=== PATIENT | male | born 1970 | race Hispanic/Latino ===

== ENCOUNTER 2017-03-06 13:05 | Emergency (ER) | payer OTHER ==
[2017-03-06 13:56] LABS: Hematocrit 40.3 % (35.5-45.6); Hemoglobin 13.5 gm/dl (11.8-15.2); Mean Corpuscular HGB Conc 34 % (32-34); Mean Corpuscular Hemoglobin 30 pg (28-32); Mean Corpuscular Volume 90 fl (84-94); Platelet Count 313 K/mm3 (140-440); Red Blood Count 4.45 M/mm3 (3.65-5.03); Red Cell Distribution Width 14.1 % (13.2-15.2); White Blood Count 12.9 K/mm3 (4.5-11.0)
[2017-03-06 14:17] LABS: Anion Gap 20 mmol/L; BUN/Creatinine Ratio 15; Blood Urea Nitrogen 9 mg/dL (9-20); Calcium 8.6 mg/dL (8.4-10.2); Carbon Dioxide 23 mmol/L (22-30); Chloride 94.6 mmol/L (98-107); Glucose 130 mg/dL (75-100); Sodium 134 mmol/L (137-145)
--- NOTE | 2017-03-06 15:34 | Emergency Department Report ---
ED Extremity Problem HPI - General Chief complaint: Extremity Injury, Lower Stated complaint: LEFT KNEE SWOLLEN Time Seen by Provider: 03/06/17 15:33 Source: patient Mode of arrival: Ambulatory Limitations: No Limitations - Related Data Previous Rx's Medication Instructions Recorded Last Taken Type ALPRAZolam [Xanax TAB] 0.25 mg PO Q8H PRN #20 tablet 12/02/13 Unknown Rx Omeprazole Magnesium [Prilosec Otc] 20 mg PO QDAY #30 tablet. 12/02/13 Unknown Rx Allergies Allergy/AdvReac Type Severity Reaction Status Date / Time codeine AdvReac Nausea Verified 12/16/13 10:59 Penicillins AdvReac Unknown Verified 12/16/13 10:59 ED Review of Systems ROS: Stated complaint: LEFT KNEE SWOLLEN Other details as noted in HPI ED Past Medical Hx - Past Medical History Previous Medical History?: Yes Hx Congestive Heart Failure: No Hx Diabetes: No Hx Asthma: No Hx COPD: No Hx HIV: No Additional medical history: BACK PAIN. bicuspid valve - Surgical History Additional Surgical History: Wrist fusion- left. Knee Surgery- left ACL repair - Social History Smoking Status: Current Every Day Smoker Substance Use Type: None - Medications Home Medications: Home Medications Medication Instructions Recorded Confirmed Last Taken Type ALPRAZolam [Xanax TAB] 0.25 mg PO Q8H PRN #20 tablet 12/02/13 Unknown Rx Omeprazole Magnesium [Prilosec Otc] 20 mg PO QDAY #30 tablet. 12/02/13 Unknown Rx ED Physical Exam - General Limitations: No Limitations ED Course Vital Signs 03/06/17 13:12 Temperature 98.9 F Pulse Rate 101 H Respiratory 18 Rate Blood Pressure 125/72 O2 Sat by Pulse 96 Oximetry ED Medical Decision Making - Lab Data Result diagrams: 03/06/17 13:38 03/06/17 13:38 Critical care attestation.: If time is entered above; I have spent that time in minutes in the direct care of this critically ill patient, excluding procedure time. ED Disposition Condition: Stable Referrals: PRIMARY CARE, [Primary Care Provider] - 3-5 Days
--- NOTE | 2017-03-06 16:07 | Emergency Department Report ---
Chief Complaint: Extremity Injury, Lower Stated Complaint: LEFT KNEE SWOLLEN Time Seen by Provider: 03/06/17 15:33 - HPI History of Present Illness: Patient here presented with left knee pain, swelling and limited range of motion. Patient said he had knee surgery when he was 14 years old. He said prior to this he was walking and had no problem. Denies history of gout. - ROS Review of Systems: All systems are negative unless stated in HPI above. - Exam Vital Signs: Vital Signs 03/06/17 13:12 Temperature 98.9 F Pulse Rate 101 H Respiratory 18 Rate Blood Pressure 125/72 O2 Sat by Pulse 96 Oximetry Physical Exam: General: This is a 47-year-old male well-nourished well-developed in no acute distress. Extremity: No clubbing, cyanosis or edema. +2 pedal pulses except the left knee with effusion, erythema and tender to palpate with limited range of motion upon flexion and extension. Patient is not able to fully flex and extend his knee. MSE screening note: Focused history and physical exam performed. Due to findings the following was ordered: ED Medical Decision Making - Lab Data Result diagrams: 03/06/17 13:38 03/06/17 13:38 Lab Results 03/06/17 03/06/17 Range/Units 13:38 13:38 WBC 12.9 H (4.5-11.0) K/mm3 RBC 4.45 (3.65-5.03) M/mm3 Hgb 13.5 (11.8-15.2) gm/dl Hct 40.3 (35.5-45.6) % MCV 90 (84-94) fl MCH 30 (28-32) pg MCHC 34 (32-34) % RDW 14.1 (13.2-15.2) % Plt Count 313 (140-440) K/mm3 Sodium 134 L (137-145) mmol/L Potassium 4.0 (3.6-5.0) mmol/L Chloride 94.6 L (98-107) mmol/L Carbon Dioxide 23 (22-30) mmol/L Anion Gap 20 mmol/L BUN 9 (9-20) mg/dL Creatinine 0.6 L (0.8-1.5) mg/dL Estimated GFR > 60 ml/min BUN/Creatinine Ratio 15 % Glucose 130 H (75-100) mg/dL Calcium 8.6 (8.4-10.2) mg/dL - Medical Decision Making MDM:Patient screen by medical provider, appropriate labs and diagnostic tests ordered. Patient to receive IV fluid with medication and antinausea medication. ED attending physician seeing patient ED Disposition for MSE Condition: Stable Referrals: PRIMARY CARE, [Primary Care Provider] - 3-5 Days
--- NOTE | 2017-03-06 16:26 | XRay Report ---
XRAY LEFT KNEE 3 VIEWS: 03/06/17 13:05:00 CLINICAL: Knee swelling. FINDINGS: No fracture or dislocation. Mild medial joint space narrowing. Calcification of the lateral meniscus. A tunnel in the tibia is consistent with an old ACL graft repair. There is a small proximal fixation screw but no distal fixation screw. Patellofemoral joint osteoarthritis. Small knee joint effusion and anterior thigh soft tissue swelling. IMPRESSION: Small knee joint effusion and patellofemoral joint osteoarthritis. Lateral meniscal chondrocalcinosis. Mild medial joint osteoarthritis.Suspect a failed ACL graft repair.
[2017-03-06 16:36] LABS: Bilirubin,Urine NEG (Negative); Blood,Urine MOD (Negative); Ketones,Urine NEG (Negative); Leukocyte Esterase,Urine NEG (Negative); Mucus,Urine FEW /HPF; Nitrite,Urine NEG (Negative); Protein,Urine <15 mg/dL mg/dL (Negative); Urobilinogen,Urine < 2.0 mg/dL (<2.0)
[2017-03-06] MEDS ORDERED: MORPHINE IV ONE (16:40)
[2017-03-06] MEDS ORDERED: NACL 0.9% 1000 ML 1,000 ML IV ONE (16:40)
[2017-03-06] MEDS ORDERED: ZOFRAN IV ONE (16:40)
[2017-03-06 16:58] LABS: Alanine Aminotransferase 15 units/L (7-56); Albumin 3.8 g/dL (3.9-5); Albumin/Globulin Ratio 1.1 %; Alkaline Phosphatase 51 units/L (35-129); Total Protein 7.4 g/dL (6.3-8.2)
[2017-03-06 17:01] LABS: Basophils % (Manual) 0 % (0.0-1.8); Blastocytes % (Manual) 0 %; Eosinophils % (Manual) 0 % (0.0-4.3)
[2017-03-06 17:02] LABS: Anisocytosis 2+; Elliptocytes Rare; Poikilocytosis Few; Tear Drop Cells Rare
[2017-03-06 17:05] LABS: Bilirubin,Direct < 0.2 mg/dL (0-0.2); Bilirubin,Indirect 0.3 mg/dL
--- NOTE | 2017-03-06 18:02 | Emergency Department Report ---
HPI - General Chief Complaint: Extremity Injury, Lower Time Seen by Provider: 03/06/17 15:33 - HPI HPI: This is a 47-year-old male presents to the emergency department from home with complaint of a 24-hour history of left knee pain. Patient says he woke up yesterday without any trauma and the left knee was slightly swollen and very stiff. He said it felt like it needed to pop. Shortly after that the pain increased and he felt like he is unable to bear weight on that left leg because of knee pain. He has a history of a left knee anterior cruciate ligament tear and repair with a graft when he was 14 years old. He has tried some [id number] pain medications that her relief. No recent travel or sick contacts at home. He does not currently have a primary care physician or an orthopedist. As a secondary complaint, the patient has some type of skin lesion or wound or ulcer to his upper right back. He says it has been there for "some time." He has not seen a fire marshal. He says that this lesion is not painful or bleeding or draining anything. ED Past Medical Hx - Past Medical History Previous Medical History?: Yes Hx Congestive Heart Failure: No Hx Diabetes: No Hx Asthma: No Hx COPD: No Hx HIV: No Additional medical history: BACK PAIN. bicuspid valve - Surgical History Additional Surgical History: Wrist fusion- left. Knee Surgery- left ACL repair - Social History Smoking Status: Current Every Day Smoker Substance Use Type: None - Medications Home Medications: Home Medications Medication Instructions Recorded Confirmed Last Taken Type ALPRAZolam [Xanax TAB] 0.25 mg PO Q8H PRN #20 tablet 12/02/13 Unknown Rx Omeprazole Magnesium [Prilosec Otc] 20 mg PO QDAY #30 tablet. 12/02/13 Unknown Rx Ibuprofen 800 mg PO Q8H PRN #20 tablet 03/06/17 Unknown Rx Sulfamethoxazole/Trimethoprim 1 each PO BID #14 tablet 03/06/17 Unknown Rx [Bactrim DS TAB] traMADol [Ultram 50 MG tab] 50 mg PO Q6HR PRN #12 tablet 03/06/17 Unknown Rx ED Review of Systems ROS: Stated complaint: LEFT KNEE SWOLLEN Other details as noted in HPI Physical Exam - Physical Exam Vital Signs: Vital Signs 03/06/17 13:12 Temperature 98.9 F Pulse Rate 101 H Respiratory 18 Rate Blood Pressure 125/72 O2 Sat by Pulse 96 Oximetry Physical Exam: GENERAL: The patient is well-developed well-nourished. HENT: Normocephalic. Atraumatic. Patient has moist mucous membranes. EYES: Extraocular motions are intact. Pupils equal reactive to light bilaterally. NECK: Supple. Trachea is midline. CHEST/LUNGS: Clear to auscultation. There is no respiratory distress noted. HEART/CARDIOVASCULAR: Regular. There is no tachycardia. There is no gallop rub or murmur. ABDOMEN: Abdomen is soft, nontender. Patient has normal bowel sounds. There is no abdominal distention. SKIN: The patient has a lesion to the right upper back that is about 1 cm in diameter with a rolled border, a central small ulceration and a pearly white papular appearing lesion raised from the skin. NEURO: The patient is awake, alert, and oriented. The patient is cooperative. The patient has no focal neurologic deficits. The patient has normal speech and gait. MUSCULOSKELETAL: There is some tenderness to palpation to the left knee. Negative anterior and posterior drawer test. There is a small amount of swelling or effusion. No laxity with valgus or varus stress but the patient has discomfort with these tests. There is some decreased range of motion secondary to discomfort. ED Course Vital Signs 03/06/17 13:12 Temperature 98.9 F Pulse Rate 101 H Respiratory 18 Rate Blood Pressure 125/72 O2 Sat by Pulse 96 Oximetry - Consultations Consultation #1: I spoke to the orthopedist on-call, Dr. Jolly, who listened to the patient's presentation and the ED course thus far. He feels that the patient can be weightbearing as tolerated and recommends anti-inflammatories and some pain medication and would like to see the patient in the office. He feels that there is a low suspicion for septic arthritis and does not recommend arthrocentesis within the emergency department. 03/06/17 19:03 ED Medical Decision Making - Lab Data Result diagrams: 03/06/17 13:38 03/06/17 13:38 - Radiology Data Radiology results: report reviewed XRAY LEFT KNEE 3 VIEWS: 03/06/17 13:05:00 CLINICAL: Knee swelling. FINDINGS: No fracture or dislocation. Mild medial joint space narrowing. Calcification of the lateral meniscus. A tunnel in the tibia is consistent with an old ACL graft repair. There is a small proximal fixation screw but no distal fixation screw. Patellofemoral joint osteoarthritis. Small knee joint effusion and anterior thigh soft tissue swelling. IMPRESSION: Small knee joint effusion and patellofemoral joint osteoarthritis. Lateral meniscal chondrocalcinosis. Mild medial joint osteoarthritis.Suspect a failed ACL graft repair. Transcribed By: REF Dictated By: OLIVE SAENZ MD Electronically Authenticated By: OLIVE SAENZ MD Signed Date/Time: 03/06/17 5981 - Medical Decision Making 47-year-old male presents with some acute left knee pain for the past 24 hours. It was swelling first and then he had the pain to the point where he has trouble bearing weight on the left lower extremity. There is a mild effusion. The knee appears stable on physical exam. X-ray showed osteoarthritis and a small joint effusion and concern for anterior cruciate ligament graft repair failure. Labs are mostly unremarkable. There is a slight leukocytosis of 13, 000. The joint itself is not warm, erythematous. The patient has a low ESR. There is a lower suspicion for a septic joint. On top of that I spoke to the orthopedist to agrees that the patient most likely should not have a arthrocentesis to the emergency department. He was placed in a knee immobilizer , given crutches, NSAIDs and pain medication, referral for orthopedist. The patient also brought to my attention some type of skin lesion on his right upper back. I have a high suspicion or concern for a basal cell carcinoma. However the patient understands that I cannot diagnose this completely from the emergency department and that he will need a fire marshal and most likely a skin biopsy. He was given dermatology referrals and understands the emergency nature with concern for possible cancer and that he needs to follow up [facility]. He will return to the ER with any worsening of symptoms or any acute distress. - Differential Diagnosis osteoarthritis, knee sprain, tendinitis, septic joint Critical Care Time: No Critical care attestation.: If time is entered above; I have spent that time in minutes in the direct care of this critically ill patient, excluding procedure time. ED Disposition Clinical Impression: Abnormal skin growth, Knee effusion, left Left knee pain Qualifiers: Chronicity: acute Qualified Code(s): M25.562 - Pain in left knee Osteoarthritis Qualifiers: Osteoarthritis location: knee Osteoarthritis type: primary Laterality: left Qualified Code(s): M17.12 - Unilateral primary osteoarthritis, left knee Disposition: TO HOME OR SELFCARE Is pt being admited?: No Condition: Stable Instructions: Osteoarthritis (ED), Knee Effusion (ED), Arthralgia (ED) Additional Instructions: Regarding the skin lesion or ulcer on your upper right back, I have concern that you have a basal cell carcinoma. It is imperative that you see a fire marshal as soon as possible. I have given you a referral for a few dermatologists. Regarding your knee pain, I have given you a referral for a local orthopedist, Dr. Jolly. Return to the emergency Department with any worsening of your symptoms are any acute distress. You have been prescribed a medication that is sedating and therefore should not be taken prior to driving, working, and responsible for children and in no way should be mixed with alcohol of any quantity. Prescriptions: Ibuprofen 800 mg PO Q8H PRN #20 tablet PRN Reason: Pain Sulfamethoxazole/Trimethoprim [Bactrim DS TAB] 1 each PO BID #14 tablet traMADol [Ultram 50 MG tab] 50 mg PO Q6HR PRN #12 tablet PRN Reason: Pain Referrals: PRIMARY CARE, [Primary Care Provider] - 3-5 Days LUCIEN JOLLY MD [Staff Physician] - GENNA GREGG MD [Staff Physician] - ARTUR LOPEZ MD [Staff Physician] - [facility] Time of Disposition: 19:05
[2017-03-06 18:23] VITALS: BP 102/50
== END 2017-03-06 19:34 | disposition home or self-care (01) ==
LOC: ED 13:05
DX: M25.462 Effusion, left knee (principal); M17.12 Unilateral primary osteoarthritis, left knee; F17.200 Nicotine dependence, unspecified, uncomplicated; L98.8 Other specified disorders of the skin and subcutaneous tissue; Z88.0 Allergy status to penicillin; Z88.5 Allergy status to narcotic agent; X58.XXXA Exposure to other specified factors, initial encounter; Y93.89 Activity, other specified; Y92.89 Other specified places as the place of occurrence of the external cause; Y99.8 Other external cause status
CPT/HCPCS: 29505; 36415; 73562; 80048; 80074; 81001; 82140; 85007; 85027; 85652; 86140; 87040; 87086; 96361; 96374; 96375; 99284; J2270; J2405; J7030